=== PATIENT | male | born 1965 | race Two or more races ===

== ENCOUNTER 2018-09-11 17:32 | Outpatient (CLI) | payer OTHER | END 2018-09-11 18:00 | disposition home or self-care (01) | LOC: LAB 17:32 | DX: D63.1 Anemia in chronic kidney disease (principal); N18.2 Chronic kidney disease, stage 2 (mild); D51.8 Other vitamin B12 deficiency anemias; I10 Essential (primary) hypertension; D55.0 Anemia due to glucose-6-phosphate dehydrogenase [G6PD] deficiency; D51.0 Vitamin B12 deficiency anemia due to intrinsic factor deficiency; D51.1 Vitamin B12 deficiency anemia due to selective vitamin B12 malabsorption with proteinuria; E03.8 Other specified hypothyroidism; E06.3 Autoimmune thyroiditis; E11.9 Type 2 diabetes mellitus without complications ==

== ENCOUNTER 2018-10-16 07:46 | Outpatient (CLI) | payer OTHER | END 2018-10-16 08:01 | disposition home or self-care (01) | LOC: LAB 07:46 | DX: D63.1 Anemia in chronic kidney disease (principal); N18.2 Chronic kidney disease, stage 2 (mild); D51.3 Other dietary vitamin B12 deficiency anemia; D50.8 Other iron deficiency anemias; D51.8 Other vitamin B12 deficiency anemias; I10 Essential (primary) hypertension; D47.2 Monoclonal gammopathy; C90.00 Multiple myeloma not having achieved remission; R74.8 Abnormal levels of other serum enzymes ==